=== PATIENT | male | born 1985 | race African-American/Black ===

== ENCOUNTER 2017-04-10 08:06 | Emergency (ER) | payer SELFPAY ==
[~2017-04-10] VITALS: Ht 172.7 cm; Wt 90.7 kg
[~2017-04-10 08:06] MED LIST: BACTRIM,SEPT1 TABLET PO; ENDOCET 5-3251 EACH PO; KEFLEX500 MG PO; NO HOME MEDS
[2017-04-10 08:53] LABS: EOSINOPHIL (%) 0.8 % (0-5); EOSINOPHIL COUNT 0.1 K/uL (0-0.3); HEMATOCRIT 42.8 % (38.0-50.0); IMMATURE GRANULOCYTE (%) 0.3 % (0.0-0.7); INSTRUMENT ABS NEUTROPHIL CT 4.7 K/uL; LYMPHOCYTE COUNT 2.1 K/uL (1.0-2.8); MCH 30.8 PG (29.0-34.0); MCHC 34.3 G/DL (30.0-36.0); MCV 89.7 FL (86-99); MEAN PLAT.VOLUME 10.5 uM^3 (9.0-12.4); MONOCYTE (%) 7.3 % (3-12); MONOCYTE COUNT 0.5 K/uL (0-0.8); NEUTROPHIL (%) 63.2 % (45-76); NEUTROPHIL COUNT 4.7 K/uL (1.8-6.4); PLATELET COUNT 215 K/uL (156-360); RBC DIS.WIDTH-CV 13.2 % (11.8-14.6); RBC DIS.WIDTH-SD 43.6 % (39-53); RED BLOOD COUNT 4.77 M/uL (4.00-5.50); WHITE BLOOD COUNT 7.4 K/uL (4.1-10.2)
[2017-04-10 09:07] LABS: CHLORIDE 103 mEq/L (99-109); SODIUM 136 mEq/L (136-147)
[2017-04-10 09:08] LABS: GLUCOSE 129 mg/dL (70-99)
[2017-04-10 09:10] LABS: ANION GAP 10 MEQ/L (2-14)
[2017-04-10 09:12] LABS: GFR ESTIMATE (CALCULATED) > 59 mL/min/
[2017-04-10 09:13] LABS: UREA NITROGEN (BUN) 13 mg/dL (9-23)
[2017-04-10 10:11] VITALS: BP 152/81
[2017-04-11] MEDS ORDERED: PROVENTIL HFA6.7 GM IH (03:06)
== END 2017-04-10 10:15 | disposition home or self-care (01) ==
LOC: EME 08:06
PROVIDERS: Emergency Medicine
DX: R06.00 Dyspnea, unspecified (principal); R05 Cough; I10 Essential (primary) hypertension; Z87.891 Personal history of nicotine dependence
CPT/HCPCS: 71020; 80048; 85025; 93005; 99281; 99285

== ENCOUNTER 2017-04-11 01:36 | Emergency (ER) | payer SELFPAY ==
[~2017-04-11] VITALS: Ht 172.7 cm; Wt 85.3 kg
[2017-04-11] MEDS ORDERED: PROVENTIL HFA6.7 GM IH (03:06)
[2017-04-11 03:21] VITALS: BP 146/97
== END 2017-04-11 03:24 | disposition home or self-care (01) ==
LOC: EME → EDBD 01:36 → EME 01:36
DX: J45.901 Unspecified asthma with (acute) exacerbation (principal); F17.200 Nicotine dependence, unspecified, uncomplicated; F32.9 Major depressive disorder, single episode, unspecified
CPT/HCPCS: 94640; 99281; 99284; J1100; J7644

== ENCOUNTER 2017-04-24 07:10 | Emergency (ER) | payer SELFPAY ==
[~2017-04-24] VITALS: Ht 172.7 cm; Wt 86.0 kg
[~2017-04-24 07:10] MED LIST changes: +PROVENTIL HFA6.7 GM IH
[2017-04-24] MEDS ORDERED: PREDNISONE20 MG PO (08:17)
[2017-04-24] MEDS ORDERED: VENTOLIN HFA18 GM IH (08:17)
[2017-04-24 08:22] VITALS: BP 148/98
== END 2017-04-24 08:30 | disposition home or self-care (01) ==
LOC: EME 07:10
PROVIDERS: Nurse Practitioner Family
DX: J45.909 Unspecified asthma, uncomplicated (principal); R05 Cough; F32.9 Major depressive disorder, single episode, unspecified; F17.200 Nicotine dependence, unspecified, uncomplicated
CPT/HCPCS: 71020; 87502; 94640; 99281; 99284; J7512